=== PATIENT | male | born 1985 | race Caucasian/White ===

== ENCOUNTER 2023-03-12 16:05 | Outpatient (CLI) | payer BC, SELFPAY | END 2023-03-12 16:06 | disposition home or self-care (01) | PROVIDERS: PCP Family Medicine; Visit Provider Family Medicine | DX: Z00.00 Encounter for general adult medical examination without abnormal findings (principal); R53.83 Other fatigue; Z13.6 Encounter for screening for cardiovascular disorders | CPT/HCPCS: 80048; 80061 ==